=== PATIENT | male | born 1970 | race Caucasian/White ===

== ENCOUNTER 2022-10-31 05:52 | Day surgery (SDC) | payer BC ==
[2022-10-24 14:37] VITALS: BMI 34.7
[2022-10-31] MEDS ORDERED: Vancomycin 1 GM VIAL ONE (06:30)
[2022-10-31] MEDS ORDERED: Bupivacaine HCl 0.5%/Epinephrine 1:200,000/PF 30 ml Vial ONE (06:30)
[2022-10-31] MEDS ORDERED: Thrombin 5000 UNITS/5 ML VIAL ONE (06:30)
[2022-10-31] MEDS ORDERED: Famotidine/PF 20 mg/2ml Vial ONE (06:49)
[2022-10-31] MEDS ORDERED: Midazolam HCl 2 mg/2 ml Vial ONE (06:49)
[2022-10-31] MEDS ORDERED: Sodium Chloride 0.9% 100 ML ONE ×2 (06:51→10:24)
[2022-10-31] MEDS ORDERED: CEFAZOLIN 2 GM VIAL ONE ×2 (06:51→10:24)
[2022-10-31] MEDS ORDERED: fentaNYL 50 mcg/mL 1 mL Vial ONE (07:02)
[2022-10-31] MEDS ORDERED: Dexamethasone 20 MG/5 ML VIAL ONE (07:06)
[2022-10-31] MEDS ORDERED: ePHEDrine Sulfate 50 MG/10 ML VIAL ONE (07:06)
[2022-10-31] MEDS ORDERED: Rocuronium Bromide 10 MG/ML (10ML VIAL) ONE (07:06)
[2022-10-31] MEDS ORDERED: Lidocaine 1% PF 5 ML VIAL ONE (07:06)
[2022-10-31] MEDS ORDERED: Labetalol HCl 100 MG/20 ML VIAL ONE (07:06)
[2022-10-31] MEDS ORDERED: PROPOFOL 200 MG/20 ML VIAL ONE (07:06)
[2022-10-31] MEDS ORDERED: NEOSTIGMINE 3 MG/3 ML SYR 3 MG/3 ML SYRINGE ONE (07:06)
[2022-10-31] MEDS ORDERED: Glycopyrrolate 0.2 MG/ML 5 ML SYRINGE ONE (07:06)
[2022-10-31] MEDS ORDERED: Ondansetron PF 4 MG/2 ML Vial ONE (07:06)
[2022-10-31] MEDS ORDERED: MINERAL OIL/WHITE PETROLATUM 3.5 GM TUBE ONE (07:12)
[2022-10-31] MEDS ORDERED: SUGAMMADEX SODIUM 200 MG/2 ML VIAL ONE (08:13)
[2022-10-31] MEDS ORDERED: HYDROmorphone 2 MG/ML VIAL ONE (08:16)
[2022-10-31] MEDS ORDERED: Tamsulosin HCl 0.4 MG CAP ONE (08:29)
== END 2022-10-31 14:31 | disposition home or self-care (01) ==
LOC: SDC 05:52
PROVIDERS: ATTEND Neurological Surgery
PROC: 01NB0ZZ Release Lumbar Nerve, Open Approach (ICD-10-PCS; principal; 2022-10-31)
DX: M54.16 Radiculopathy, lumbar region (principal); I10 Essential (primary) hypertension; M10.9 Gout, unspecified; F17.200 Nicotine dependence, unspecified, uncomplicated; Z79.899 Other long term (current) drug therapy
CPT/HCPCS: J1100; J1170; J2250; J2405; J2704; J3010; J3370; J3490; S0028